=== PATIENT | male | born 1960 | race Caucasian/White ===

== ENCOUNTER 2016-07-30 10:05 | Emergency (ER) | payer MEDICARE, MEDICAID ==
[2016-07-30 10:05] VITALS: BMI 26.4
[2016-07-30 10:20] VITALS: TEMP 97.7; O2SAT 98
--- NOTE | 2016-07-30 10:44 | C.PDOC ---
History Of Present Illness <Sidra Alfaro - Last Filed: 07/30/16 11:03> <Izzy Escamilla - Last Filed: 07/30/16 11:13> 56 year old male with PMHx of HTN, DM, HLD, CVA 4 years ago, CHF and HI presents with complaint of slow healing, painful foot wound. The patient states that one month ago he stepped on a nail with his right foot. He went to a oyster buyer immediately, had the infected area excised, and was given 7 days of oral antibiotics. He completed the course but states that he is worried that the wound is healing slowly. Patient admits to fear of foot amputation. He states that the wound has improved and has not gotten worse. Admits to pain with ambulation and palpation around wound. Denies drainage or bleeding, fevers , numbness, and tingling of extremities. (Izzy Escamilla) <Sidra Alfaro - Last Filed: 07/30/16 11:03> History Per: Patient History/Exam Limitations: no limitations Onset/Duration Of Symptoms: Days (1 month ) Current Symptoms Are (Timing): Better Quality Of Symptoms: Painful Severity: Mild Pain Scale Rating Of: 5 Recent travel outside of the [place]: No <AndiBillIzzy - Last Filed: 07/30/16 11:13> Time Seen by Provider: 07/30/16 10:40 Chief Complaint (Nursing): Abnormal Skin Integrity Past Medical History - Medical History PMH: Asthma, CHF, Diabetes, HTN, Hypercholesterolemia Family History: States: Unknown Family Hx - Social History Hx Tobacco Use: Yes Hx Alcohol Use: No Hx Substance Use: No - Immunization History Hx Tetanus Toxoid Vaccination: Yes (09/25/2012) Hx Influenza Vaccination: Yes Hx Pneumococcal Vaccination: Yes <AndiIzzy - Last Filed: 07/30/16 11:13> Vital Signs: Last Vital Signs Temp 97.7 F 07/30/16 10:19 Pulse 95 H 07/30/16 10:19 Resp 18 07/30/16 10:19 BP 112/75 07/30/16 10:19 Pulse Ox 98 07/30/16 11:01 - [facility] Procedures CLOSURE SKIN & SUBCUTANEOUS NEC (09/25/12) MEASURE OF CARDIAC SAMPL & PRESSURE, L HEART, PERC APPROACH (04/02/16) OTHER LOCAL DESTRUC SKIN (10/11/14) OTHER SKIN & SUBQ I D (02/04/15) PLAIN RADIOGRAPHY OF LEFT HEART USING OTHER CONTRAST (04/02/16) PLAIN RADIOGRAPHY OF MULT COR ART USING OTH CONTRAST (04/02/16) RADICAL EXCIS SKIN LES (10/11/14) TETANUS TOXOID ADMINIST (02/04/15) Review Of Systems Except As Marked, All Systems Reviewed And Found Negative. Constitutional: Negative for: Fever Skin: Positive for: Other (open wound on foot) <Izzy Escamilla - Last Filed: 07/30/16 11:13> Physical Exam - Physical Exam Appears: Well, Non-toxic, No Acute Distress Skin: Normal Color, Warm, Dry, Other (0.5cm x 0.5cm open wound on bottom of right foot, non-draining, non-erythematous, no induration, mild ttp around wound ) Cardiovascular: Rhythm Regular Respiratory: Normal Breath Sounds Extremity: Other (see skin above ) <Izzy Escamilla - Last Filed: 07/30/16 11:13> ED Course And Treatment O2 Sat by Pulse Oximetry: 98 <Izzy Escamilla - Last Filed: 07/30/16 11:13> Supervising Attending Note - Supervising Attending Note Comment: RESIDENT - Attestation: I have personally seen and examined this patient.: Yes I have fully participated in the care of the patient.: Yes I have reviewed all pertinent clinical information, including history, physical exam and plan: Yes <Sidra Alfaro - Last Filed: 07/30/16 11:03> <Izzy Escamilla - Last Filed: 07/30/16 11:13> - Notes: Notes:: CONCERN FOR REINFECTION R FOOT ULCER. "IT'S NOT HEALING FAST I'D LIKE" BUT STATES SITE IS BETTER. COMPLETED ABX PREV PRESCRIBED BY PODIATRY. PS DOES NOT WANT TO SEE PODIATRY "BC HE'S NOT GOING TO DO ANYTHING". REQUESTING IV ABX. NO FEVER, CHILLS, OTHER ASSOC SX. EXAM ABOVE (Sidra Alfaro) Disposition Counseled Patient/Family Regarding: Diagnosis, Need For Followup - Disposition Disposition Time: 11:05 <Sidra Alfaro - Last Filed: 07/30/16 11:03> <Izzy Escamilla - Last Filed: 07/30/16 11:13> - Disposition Referrals: [facility] [Other[facility] [Outside] Instructions: Chronic Wound Care (ED) Forms: Work Excuse - Clinical Impression Clinical Impression: Chronic wound of extremity
[2016-07-30] MEDS ORDERED: Bacitracin 500 Units/gm Oint Foilpak UD TOP ONE (11:09)
[2016-07-30 11:18] VITALS: BP 117/71; PULSE 74; RESP 16
== END 2016-07-30 11:17 | disposition home or self-care (01) ==
LOC: C.ER 10:05
DX: S91.301D Unspecified open wound, right foot, subsequent encounter (principal); X58.XXXD Exposure to other specified factors, subsequent encounter

== ENCOUNTER 2016-10-12 16:29 | Inpatient (IN) | payer MEDICARE, MEDICAID ==
[2016-10-12 16:30] VITALS: BMI 26.4
--- NOTE | 2016-10-12 17:50 | C.PDOC ---
History Of Present Illness 56 year old male presents to the ED with complaints of shortness of breath for 5 days that worsens on exertion. He noted a episode with similar symptoms in March 2016 when he had a WI. Patient denies any chest pain, fever, uri, or leg swelling. Time Seen by Provider: 10/12/16 16:54 Chief Complaint (Nursing): Respiratory Distress History Per: Patient History/Exam Limitations: no limitations Onset/Duration Of Symptoms: Days (5 days ) Current Symptoms Are (Timing): Still Present Exacerbating Factor(s): Exertion Associated Symptoms: denies: Fever, Chills, Sweating, Chest Pain, Dizziness Recent travel outside of the [place]: No Past Medical History Reviewed: Historical Data, Nursing Documentation, Vital Signs Vital Signs: Last Vital Signs Temp 98.1 F 10/12/16 18:20 Pulse 91 H 10/12/16 18:20 Resp 18 10/12/16 18:20 BP 128/86 10/12/16 18:20 Pulse Ox 100 10/12/16 18:32 - Medical History PMH: Asthma, CHF, Diabetes, HTN, Hypercholesterolemia - [facility] Procedures CLOSURE SKIN & SUBCUTANEOUS NEC (09/25/12) MEASURE OF CARDIAC SAMPL & PRESSURE, L HEART, PERC APPROACH (04/02/16) OTHER LOCAL DESTRUC SKIN (10/11/14) OTHER SKIN & SUBQ I D (02/04/15) PLAIN RADIOGRAPHY OF LEFT HEART USING OTHER CONTRAST (04/02/16) PLAIN RADIOGRAPHY OF MULT COR ART USING OTH CONTRAST (04/02/16) RADICAL EXCIS SKIN LES (10/11/14) TETANUS TOXOID ADMINIST (02/04/15) Family History: States: Unknown Family Hx - Social History Hx Tobacco Use: Yes Hx Alcohol Use: No Hx Substance Use: No - Immunization History Hx Tetanus Toxoid Vaccination: Yes (09/25/2012) Hx Influenza Vaccination: Yes Hx Pneumococcal Vaccination: Yes Review Of Systems Constitutional: Negative for: Fever, Chills, Sweats Cardiovascular: Negative for: Chest Pain, Palpitations Respiratory: Positive for: Shortness of Breath. Negative for: Cough Gastrointestinal: Negative for: Nausea, Vomiting, Abdominal Pain, Diarrhea Neurological: Negative for: Weakness, Headache, Dizziness Physical Exam - Physical Exam Appears: Non-toxic, No Acute Distress Skin: Warm, Dry Head: Atraumatic Eye(s): bilateral: PERRL, EOMI Nose: Normal Oral Mucosa: Moist Neck: Normal ROM, Supple Chest: Symmetrical, No Deformity Cardiovascular: Rhythm Regular Respiratory: No Rales, Rhonchi, No Stridor, No Wheezing Gastrointestinal/Abdominal: Soft, No Tenderness, No Distention, No Guarding, No Rebound Extremity: Normal ROM, No Tenderness, No Pedal Edema Neurological/Psych: Oriented x3, Normal Speech, Normal Cognition ED Course And Treatment - Laboratory Results Result Diagrams: 10/12/16 17:57 10/12/16 17:57 ECG: Interpreted By Me (Dr Alfaro), Viewed By Me ECG Rhythm: Sinus Rhythm, Nonspecific Changes Interpretation Of ECG: TWI in II, III, and Avf- un changed from 05/14/16 Rate From EC O2 Sat by Pulse Oximetry: 100 (room air ) - Radiology CXR: Interpreted by Me, Viewed By Me CXR Interpretation: Yes: Other (venous congestion) Progress Note: Case discussed with Demetrice Rico who instructs admission with Dr Isidro Lemus. Dr Felix agreed upon admission. Disposition - Disposition Disposition: HOSPITALIZED Disposition Time: 18:50 Condition: STABLE - Clinical Impression Clinical Impression: Chronic congestive heart failure - Scribe Statement The provider has reviewed the documentation as recorded by the Scribe Flor Huntley All medical record entries made by the Scribe were at my direction and personally dictated by me. I have reviewed the chart and agree that the record accurately reflects my personal performance of the history, physical exam, medical decision making, and the department course for this patient. I have also personally directed, reviewed, and agree with the discharge instructions and disposition.
[2016-10-12 18:07] LABS: BASO # 0.1 K/uL (0.0-0.2); BASO % 1.4 % (0.0-2.0); EOS # 0.6 K/uL (0.0-0.7); EOS % 7.5 % (0.0-4.0); HEMATOCRIT 36.8 % (35.0-51.0); LYMPH # 2.7 K/uL (1.0-4.3); LYMPH % 33.6 % (20.0-40.0); MEAN CELL VOLUME 85.5 fL (80.0-94.0); MEAN CORPUSCULAR HEMOGLOBIN 27.3 pg (27.0-31.0); MEAN PLATELET VOLUME 10.5 fL (7.2-11.7); MONO # 0.7 K/uL (0.0-0.8); MONO % 9.3 % (0.0-10.0); NRBC % 0.1 % (0.0-2.0); RED CELL DISTRIBUTION WIDTH 14.8 % (11.5-14.5)
[2016-10-12 18:19] LABS: POTASSIUM 4.7 mmol/L (3.6-5.2)
[2016-10-12 18:21] LABS: BILIRUBIN,TOTAL 0.5 mg/dL (0.2-1.3)
[2016-10-12 18:22] LABS: ALB/GLOB RATIO 1.5 (1.0-2.1); TOTAL PROTEIN 7.3 g/dL (6.3-8.3)
[2016-10-12 18:33] LABS: TROPONIN I 0.081 ng/mL (0.00-0.120)
[2016-10-12] MEDS ORDERED: Albuterol 0.083% Inhal Sol (2.5 mg/3 mL) UD IH STA (18:50)
[2016-10-12] MEDS ORDERED: Albuterol-Ipratrop 3 mg / 0.5 (3 ml) UD ONE (18:54)
[2016-10-13] MEDS ORDERED: Albuterol-Ipratrop 3 mg / 0.5 (3 ml) UD INH STA (03:50)
--- NOTE | 2016-10-13 08:07 | RAD ---
HISTORY: SOB COMPARISON: 05/14/2016 TECHNIQUE: Chest PA and lateral FINDINGS: LUNGS: Patchy increased markings at the bilateral lung bases which may represent underlying infiltrate and or atelectasis. Diffuse chronic interstitial lung markings which may represent underlying fibrotic changes. Biapical pleural thickening with upper lobe granulomatous changes. Right hilar prominence. PLEURA: As above. CARDIOVASCULAR: Cardiomegaly. OSSEOUS STRUCTURES: No significant abnormalities. VISUALIZED UPPER ABDOMEN: Normal. OTHER FINDINGS: None. IMPRESSION: Patchy increased markings at the bilateral lung bases which may represent underlying infiltrate and or atelectasis. Diffuse chronic interstitial lung markings which may represent underlying fibrotic changes. Biapical pleural thickening with upper lobe granulomatous changes. Right hilar prominence.
--- NOTE | 2016-10-13 10:56 | CP.PCM.PN ---
Subjective - Date & Time of Evaluation Date of Evaluation: 10/13/16 Time of Evaluation: 09:10 - Subjective Subjective: PGY2 Medicine Note - Dr. Felix's service: Patient seen and examined at bedside this AM. Patient reports urinating a lot over night from the Lasix. He says he feels he can breath much better now. Patient has had "water on my lungs" before. Patient has also had previous CVA and MO (March 2016). Patient says he gets more short of breath when he lies flat. Patient denies fever, chills, chest pain, cough. Objective - Vital Signs/Intake and Output Vital Signs (last 24 hours): Temp Pulse Resp BP Pulse Ox 97.5 F L 85 20 125/76 99 10/13/16 07:49 10/13/16 07:49 10/13/16 07:49 10/13/16 09:53 10/13/16 07:49 - Medications Medications: Current Medications Albuterol/Ipratropium (Duoneb 3 Mg/0.5 Mg (3 Ml) Ud) 3 ml INH RQ6 [facility] Aspirin (Aspirin Chewable) 81 mg PO DAILY [facility] Last Admin: 10/13/16 10:00 Dose: 81 mg Carvedilol (Coreg) 6.25 mg PO BID [facility] Last Admin: 10/13/16 09:51 Dose: Not Given Clopidogrel Bisulfate (Plavix) 75 mg PO DAILY [facility] Last Admin: 10/13/16 09:53 Dose: 75 mg Famotidine (Pepcid) 20 mg PO BID [facility] Last Admin: 10/13/16 09:53 Dose: 20 mg Fenofibrate (Tricor) 145 mg PO DAILY [facility] Last Admin: 10/13/16 09:51 Dose: 145 mg Gabapentin (Neurontin) 300 mg PO HS [facility] Insulin Human Regular (Novolin R) 0 unit SC [facility] PRN Reason: Protocol Levetiracetam (Keppra) 1,000 mg PO BID [facility] Last Admin: 10/13/16 09:53 Dose: 1,000 mg Losartan Potassium (Cozaar) 25 mg PO DAILY [facility] Last Admin: 10/13/16 09:51 Dose: Not Given [facility]formin [facility] ([facility]) [facility] Rosuvastatin Calcium (Crestor) 20 mg PO DAILY [facility] Last Admin: 10/13/16 09:53 Dose: 20 mg - Constitutional Appears: Non-toxic, No Acute Distress - Head Exam Head Exam: NORMAL INSPECTION - Eye Exam Eye Exam: EOMI - ENT Exam ENT Exam: Mucous Membranes Moist - Respiratory Exam Respiratory Exam: Rales, Rhonchi (right base), NORMAL BREATHING PATTERN - Cardiovascular Exam Cardiovascular Exam: REGULAR RHYTHM, +S1, +S2. absent: Gallop, Rubs, Murmur - GI/Abdominal Exam GI & Abdominal Exam: Soft, Normal Bowel Sounds. absent: Tenderness - Extremities Exam Extremities Exam: absent: Pedal Edema - Neurological Exam Neurological Exam: Alert, Oriented x3 - Psychiatric Exam Psychiatric exam: Normal Affect, Normal Mood Assessment and Plan - Assessment and Plan (Free Text) Assessment: Acute on chronic systolic and diastolic CHF EF was 20-25% on cardiac cath in March 2016 Another cardiac cath done June 2016 but cannot find the results Cardio consult - Dr. Kumar - f/u recs Lasix 20mg IVP daily Coreg 6.25mg PO BID Losartan 25mg PO daily [facility]IS[facility] 0.0810, .0800, f/u 3rd MERISSA EKG - 92 bpm woith PVCs, rightward axis and prolonged QTc at 460ms COPD History of smoking Duonebs Q6 [facility] CXR - patchy increased markings at the bilateral lung bases which may represent underlying infiltrate and/or atelectasis. Diffuse chronic interstitial lung markings which may represent underlying fibrotic changes. Biapical pleural thickening with upper lobe granulmoatous changes. Right hilar prominence. Patient does not have any symptoms of pneumonia. If patient develops cough, will add ABX HTN Lasix 20mg IVP daily Coreg 6.25mg PO BID Losartan 25mg PO daily Imdur 30mg PO daily DM Metformin 100mg PO BIDBS RISS Accuchecks Hyperlipidemia Crestor 20mg PO daily CVA 4 years ago ASA 81mg PO daily Plavix 75mg PO daily CAD Multivessel blockages Cardio consult - Dr. Kumar - f/u recs ASA 81mg PO daily Plavix 75mg PO daily Prophylaxis Pepcid 20mg PO BID ASA 81mg PO daily plavix 75mg PO daily All management per Dr. Felix
[2016-10-13] MEDS: (Novolin R) Insulin Human Regular 100 units/ml vial SC SCH ×3 (11:55→21:38)
[2016-10-13] MEDS: Albuterol-Ipratrop 3 mg / 0.5 (3 ml) UD INH SCH (13:30)
[2016-10-13] MEDS: Enoxaparin 40 mg Syringe SC SCH (18:14)
--- NOTE | 2016-10-13 19:02 | CP.PCM.CON ---
History of Present Illness - History of Present Illness History of Present Illness: I was asked to see patient by Dr. Felix. Patient is a 56 year old male with a PMH HTN, multivessel CAD, Cardiomyopathy ( last echo EF >35%) who presents with dyspnea. The patient states for the past few days he has noted progressive dyspnea on exertion. He states he was "filling up with fluid". He denies chest pain or palpitaitons. Review of Systems - Constitutional Constitutional: absent: As Per HPI, Anorexia, Chills, Daytime Sleepiness, Excessive Sweating, Fatigue, Fever, Frequent Falls, Headache, Increased Appetite , Lethargy, Malaise, Night Sweats, Snoring, Sleep Apnea, Weight Gain, Weight Loss, Weakness, Other - EENT Eyes: absent: As Per HPI, Blind Spots, Blurred Vision, Change in Vision, Decreased Night Vision, Diplopia, Discharge, Dry Eye, Exophthalmos, Floaters, Irritation, Itchy Eyes, Loss of Peripheral Vision, Pain, Photophobia, Requires Corrective Lenses, Sees Flashes, Spots in Vision, Tunnel Vision, Other Visual Disturbances, Loss of Vision, Other Nose/Mouth/Throat: absent: As Per HPI, Epistaxis, Nasal Congestion, Nasal Discharge, Nasal Obstruction, Nasal Trauma, Nose Pain, Post Nasal Drip, Sinus Pain, Sinus Pressure, Bleeding Gums, Change in Voice, Dental Pain, Dry Mouth, Dysphagia, Halitosis, Hoarsness, Lip Swelling, Mouth Lesions, Mouth Pain, Odynophagia, Sore Throat, Throat Swelling, Tongue Swelling, Facial Pain, Neck Pain, Neck Mass, Other - Cardiovascular Cardiovascular: Dyspnea - Respiratory Respiratory: Dyspnea - Gastrointestinal Gastrointestinal: absent: As Per HPI, Abdominal Pain, Belching, Bloating, Change in Bowel Habits, Change in Stool Character, Coffee Ground Emesis, Constipation, Cramping, Diarrhea, Dyspepsia, Dysphagia, Early Satiety, Excessive Flatus, Fecal Incontinence, Heartburn, Hematemesis, Hematochezia, Loose Stools, Melena, Nausea, Odynophagia, Temesmus, Vomiting, Other - Genitourinary Genitourinary: absent: As Per HPI, Change in Urinary Stream, Difficulty Urinating, Dysuria, Flank Pain, Hematuria, Pyuria, Nocturia, Urinary Incontinence, Urinary Frequency, Urinary Hesitance, Urinary Urgency, Voiding Freq/Small Amts, Freq UTI, Hx Renal/Bladder Calculi, Hx /Renal Surgery, Bladder Distension, Other - Musculoskeletal Musculoskeletal: absent: As Per HPI, Abnormal Gait, Arthralgias, Atrophy, Back Pain, Deformity, Joint Swelling, Limited Range of Motion, Loss of Height, Muscle Cramps, Muscle Weakness, Myalgias, Neck Pain, Numbness, Radiating Pain into Limb, Stiffness, Tingling, Other - Integumentary Integumentary: absent: As Per HPI, Acne, Alopecia, Bleeding Lesions, Change in Hair, Change in Nails, Change in Pigmentation, Changing Lesions, Dry Skin, Erythema, Furuncle, Hirsutism, Lesions, New Lesions, Non-Healing Lesions, Photosensitivity, Pruritus, Rash, Skin Pain, Skin Ulcer, Sores, Striae, Swelling , Unusual Bruising, Wounds, Jaundice, Other - Neurological Neurological: absent: As Per HPI, Abnormal Gait, Abnormal Hearing, Abnormal Movements, Abnormal Speech, Behavioral Changes, Burning Sensations, Confusion, Convulsions, Disequilibrium, Dizziness, Numbness, Focal Weakness, Frequent Falls , Headaches, Lack of Coordination, Loss of Vision, Memory Loss, Paresthesias, Radicular Pain, Restless Legs, Sensory Deficit, Syncope, Tingling, Tremor, Vertigo, Weakness, Other Visual Disturbances, Other - Psychiatric Psychiatric: absent: As Per HPI, Abnormal Sleep Pattern, Anhedonia, Anxiety, Auditory Hallucinations, Behavioral Changes, Change in Appetite, Change in Libido, Confusion, Depression, Difficulty Concentrating, Hallucinations, Homicidal Ideation, Hopelessness, Irritability, Memory Loss, Mood Swings, Panic Attacks, Paranoia, Suicidal Ideation, Visual Hallucinations, Tactile Hallucinations, Other - Endocrine Endocrine: absent: As Per HPI, Change in Body Appearance, Change in Libido, Cold Intolorance, Deepening of Voice, Excessive Sweating, Fatigue, Flushing, Heat Intolorance, Increase in Ring/Shoe/Hat Size, Palpitations, Polydipsia, Polyphagia, Polyuria, Other - Hematologic/Lymphatic Hematologic: absent: As Per HPI, Easy Bleeding, Easy Bruising, Lymphadenopathy, Other Past Patient History - Infectious Disease Hx of Infectious Diseases: None - Past Medical History & Family History Past Medical History?: Yes - Past Social History Smoking Status: Former Smoker - CARDIAC Hx Congestive Heart Failure: Yes Hx Hypercholesterolemia: Yes Hx Hypertension: Yes - PULMONARY Hx Asthma: Yes - NEUROLOGICAL Hx Neurological Disorder: Yes HX Cerebrovascular Accident: Yes (5 yrs ago) Other/Comment: STROKE - 3-4 YRS AGO - HEENT Hx HEENT Problems: Yes (SEE COMMENT) Other/Comment: 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 - ENDOCRINE/METABOLIC Hx Endocrine Disorders: Yes Hx Diabetes Mellitus Type 2: Yes - MUSCULOSKELETAL/RHEUMATOLOGICAL Hx Falls: No - GASTROINTESTINAL Hx Gastrointestinal Disorders: Yes Hx Ulcer: Yes - PSYCHIATRIC Hx Substance Use: No - SURGICAL HISTORY Hx Surgeries: Yes Hx Orthopedic Surgery: Yes (RIGHT HAND ) - ANESTHESIA Hx Anesthesia: Yes Hx Anesthesia Reactions: No Hx Malignant Hyperthermia: No Has any member of the family had a problem w/ anesthesia?: No Meds Allergies/Adverse Reactions: Allergies Allergy/AdvReac Type Severity Reaction Status Date / Time No Known Allergies Allergy Verified 10/12/16 16:59 - Medications Medications: Current Medications Albuterol/Ipratropium (Duoneb 3 Mg/0.5 Mg (3 Ml) Ud) 3 ml INH RQ6 [facility] Last Admin: 10/13/16 13:30 Dose: 3 ml Aspirin (Aspirin Chewable) 81 mg PO DAILY [facility] Last Admin: 10/13/16 10:00 Dose: 81 mg Carvedilol (Coreg) 6.25 mg PO BID [facility] Last Admin: 10/13/16 17:45 Dose: 6.25 mg Clopidogrel Bisulfate (Plavix) 75 mg PO DAILY [facility] Last Admin: 10/13/16 09:53 Dose: 75 mg Enoxaparin Sodium (Lovenox) 40 mg SC DAILY [facility] Last Admin: 10/13/16 18:14 Dose: 40 mg Famotidine (Pepcid) 20 mg PO BID [facility] Last Admin: 10/13/16 17:45 Dose: 20 mg Fenofibrate (Tricor) 145 mg PO DAILY [facility] Last Admin: 10/13/16 09:51 Dose: 145 mg Furosemide (Lasix) 20 mg IVP DAILY [facility] Gabapentin (Neurontin) 300 mg PO HS [facility] Insulin Human Regular (Novolin R) 0 unit SC [facility] PRN Reason: Protocol Last Admin: 10/13/16 16:42 Dose: Not Given Isosorbide Mononitrate (Imdur) 30 mg PO DAILY [facility] Last Admin: 10/13/16 11:20 Dose: 30 mg Levetiracetam (Keppra) 1,000 mg PO BID [facility] Last Admin: 10/13/16 17:44 Dose: 1,000 mg Losartan Potassium (Cozaar) 25 mg PO DAILY [facility] Last Admin: 10/13/16 09:51 Dose: Not Given Metformin HCl (Glucophage) 1,000 mg PO BIDBS [facility] Last Admin: 10/13/16 17:44 Dose: 1,000 mg Rosuvastatin Calcium (Crestor) 20 mg PO DAILY [facility] Last Admin: 10/13/16 09:53 Dose: 20 mg Physical Exam - Constitutional Appears: Non-toxic - Head Exam Head Exam: NORMAL INSPECTION - Eye Exam Eye Exam: Normal appearance - ENT Exam ENT Exam: Mucous Membranes Moist - Neck Exam Neck exam: Positive for: Full Rom - Respiratory Exam Respiratory Exam: Decreased Breath Sounds, Rales - Cardiovascular Exam Cardiovascular Exam: REGULAR RHYTHM - GI/Abdominal Exam GI & Abdominal Exam: Normal Bowel Sounds - Rectal Exam Rectal Exam: Deferred - Extremities Exam Extremities exam: Negative for: pedal edema - Back Exam Back exam: NORMAL INSPECTION - Neurological Exam Neurological exam: Alert, Oriented x3 - Psychiatric Exam Psychiatric exam: Normal Affect - Skin Skin Exam: Normal Color Results - Vital Signs Recent Vital Signs: Last Vital Signs Temp 97.8 F 10/13/16 15:00 Pulse 84 10/13/16 17:46 Resp 20 10/13/16 17:46 BP 127/73 10/13/16 17:46 Pulse Ox 99 10/13/16 15:00 - Labs Result Diagrams: 10/12/16 17:57 10/12/16 17:57 Labs: Laboratory Results - last 24 hr 10/13/16 10/13/16 10/13/16 06:15 08:11 11:46 POC Glucose (mg/dL) 118 H 123 H Total Creatine Kinase 52 L CK-MB (Mass) 0.81 Troponin I, Quant 0.0800 10/13/16 10/13/16 15:44 16:35 POC Glucose (mg/dL) 118 H Total Creatine Kinase 45 L CK-MB (Mass) 0.71 Troponin I, Quant 0.0680 - EKG Data EKG Interpreted by: Myself Assessment & Plan (1) Systolic dysfunction with acute on chronic heart failure Assessment and Plan: will need improved duresis. I discussed medical therapy and lifestyle modification Status: Acute (2) HTN (hypertension) Assessment and Plan: discussed continued blood pressure control and importance for prevention od CHF. Status: Acute (3) CAD (coronary artery disease) Assessment and Plan: will restart Imdur. no current angina. Status: Acute (4) Hypercholesterolemia Assessment and Plan: statin therapy Status: Acute
--- NOTE | 2016-10-14 01:55 | CARD ---
APPROVED REPORT EKG Measurement Heart [id number] MD [id number] <Conclusion> Sinus rhythm with occasional premature ventricular complexes Rightward axis ST & T wave abnormality, consider inferior ischemia Prolonged QT Abnormal ECG
[2016-10-14 07:13] LABS: BASO # 0.2 K/uL (0.0-0.2); BASO % 2.3 % (0.0-2.0); EOS # 0.7 K/uL (0.0-0.7); EOS % 7.4 % (0.0-4.0); HEMATOCRIT 33.3 % (35.0-51.0); LYMPH # 1.9 K/uL (1.0-4.3); LYMPH % 21.1 % (20.0-40.0); MEAN CORPUSCULAR HEMOGLOBIN 28.1 pg (27.0-31.0); MEAN CORPUSCULAR HGB CONC 33.5 g/dL (33.0-37.0); MEAN PLATELET VOLUME 10.1 fL (7.2-11.7); MONO # 0.7 K/uL (0.0-0.8); RED CELL DISTRIBUTION WIDTH 14.7 % (11.5-14.5); WHITE BLOOD COUNT 8.9 K/uL (4.8-10.8)
[2016-10-14 07:18] LABS: CHLORIDE 101 mmol/L (98-107); POTASSIUM 3.8 mmol/L (3.6-5.2); SODIUM 139 mmol/L (132-148)
[2016-10-14 07:20] LABS: AST/SGOT 30 U/L (17-59); BILIRUBIN,TOTAL 0.6 mg/dL (0.2-1.3); CARBON DIOXIDE 25 mmol/L (22-30); GFR AFRICAN-AMERICAN > 60
[2016-10-14 07:21] LABS: ALB/GLOB RATIO 1.3 (1.0-2.1); ALKALINE PHOSPHATASE 38 U/L (38-126); ALT/SGPT 20 U/L (21-72); BLOOD UREA NITROGEN 15 mg/dL (9-20); CALCIUM 8.9 mg/dl (8.6-10.4); GLUCOSE,RANDOM 107 mg/dL (75-110); TOTAL PROTEIN 6.8 g/dL (6.3-8.3)
[2016-10-14] MEDS: (Novolin R) Insulin Human Regular 100 units/ml vial SC SCH (07:52)
--- NOTE | 2016-10-14 08:01 | HP ---
This is a 56-year-old male admitted to the hospital with complaint of shortness of breath, weakness, cough. The patient came to the hospital and advised admission history of coronary artery disea se, diabetes and hypertension. PHYSICAL EXAMINATION: GENERAL: Awake, alert, oriented. VITAL SIGNS: Temperature 98, pulse 90. HEENT: Within normal limits. NECK: Supple. CHEST: Symmetrical. HEART: Regular. ABDOMEN: Soft. EXTREMITIES: No edema. ASSESSMENT AND PLAN: The patient suffers from congestive heart failure. Bed rest, supportive care, diuresis. Allan Beltre MD cc: [id number] TT: 10/13/2016 10:55:56 jose
[2016-10-14] MEDS: Albuterol-Ipratrop 3 mg / 0.5 (3 ml) UD INH SCH (08:09)
[2016-10-14 08:17] VITALS: PULSE 89; RESP 20; TEMP 97.5; O2SAT 100
--- NOTE | 2016-10-14 08:59 | CP.PCM.PN ---
Subjective - Date & Time of Evaluation Date of Evaluation: 10/14/16 Time of Evaluation: 10:00 - Subjective Subjective: PGY2 on medicine Dr. Felix service: Pt seen and examined at bedside this morning. No acute events overnight. Pt to be discharged today with home meds with addition of Lasix 40mg PO daily and Imdur 30mg PO daily. Pt will also be given Nicotrol inhaler. Objective - Vital Signs/Intake and Output Vital Signs (last 24 hours): Temp Pulse Resp BP Pulse Ox 97.5 F L 89 20 129/83 100 10/14/16 07:00 10/14/16 07:00 10/14/16 07:00 10/14/16 07:00 10/14/16 07:00 Intake and Output: 10/14/16 10/14/16 06:59 18:59 Intake Total 480 Balance 480 - Medications Medications: Current Medications Albuterol/Ipratropium (Duoneb 3 Mg/0.5 Mg (3 Ml) Ud) 3 ml INH RQ6 [facility] Last Admin: 10/14/16 08:09 Dose: 3 ml Aspirin (Aspirin Chewable) 81 mg PO DAILY [facility] Last Admin: 10/13/16 10:00 Dose: 81 mg Carvedilol (Coreg) 6.25 mg PO BID [facility] Last Admin: 10/13/16 17:45 Dose: 6.25 mg Clopidogrel Bisulfate (Plavix) 75 mg PO DAILY [facility] Last Admin: 10/13/16 09:53 Dose: 75 mg Enoxaparin Sodium (Lovenox) 40 mg SC DAILY [facility] Last Admin: 10/13/16 18:14 Dose: 40 mg Famotidine (Pepcid) 20 mg PO BID [facility] Last Admin: 10/13/16 17:45 Dose: 20 mg Fenofibrate (Tricor) 145 mg PO DAILY [facility] Last Admin: 10/13/16 09:51 Dose: 145 mg Furosemide (Lasix) 20 mg IVP DAILY [facility] Gabapentin (Neurontin) 300 mg PO HS [facility] Last Admin: 10/13/16 21:37 Dose: 300 mg Insulin Human Regular (Novolin R) 0 unit SC [facility] PRN Reason: Protocol Last Admin: 10/14/16 07:52 Dose: Not Given Isosorbide Mononitrate (Imdur) 30 mg PO DAILY [facility] Last Admin: 10/13/16 11:20 Dose: 30 mg Levetiracetam (Keppra) 1,000 mg PO BID [facility] Last Admin: 10/13/16 17:44 Dose: 1,000 mg Losartan Potassium (Cozaar) 25 mg PO DAILY [facility] Last Admin: 10/13/16 09:51 Dose: Not Given Metformin HCl (Glucophage) 1,000 mg PO BIDBS [facility] Last Admin: 10/14/16 08:19 Dose: 1,000 mg Rosuvastatin Calcium (Crestor) 20 mg PO DAILY [facility] Last Admin: 10/13/16 09:53 Dose: 20 mg - Labs Labs: 10/14/16 06:56 10/14/16 06:56 - Constitutional Appears: Non-toxic, No Acute Distress - Head Exam Head Exam: NORMOCEPHALIC - Eye Exam Eye Exam: Normal appearance - Respiratory Exam Respiratory Exam: Clear to Ausculation Bilateral, NORMAL BREATHING PATTERN - Cardiovascular Exam Cardiovascular Exam: REGULAR RHYTHM, +S1, +S2. absent: Gallop, Rubs - GI/Abdominal Exam GI & Abdominal Exam: Soft, Normal Bowel Sounds - Neurological Exam Neurological Exam: Alert, Awake, Normal Gait, Oriented x3 Assessment and Plan - Assessment and Plan (Free Text) Assessment: Acute on chronic systolic and diastolic CHF EF was 20-25% on cardiac cath in March 2016 Another cardiac cath done June 2016 but cannot find the results Cardio consult - Dr. Kumar - [facility] ECHO EF >35% per Dr. Kumar Coreg 6.25mg PO BID Losartan 25mg PO daily Lasix 40mg PO daily COPD History of smoking Duonebs Q6 [facility] CXR - patchy increased markings at the bilateral lung bases which may represent underlying infiltrate and/or atelectasis. Diffuse chronic interstitial lung markings which may represent underlying fibrotic changes. Biapical pleural thickening with upper lobe granulmoatous changes. Right hilar prominence. Patient does not have any symptoms of pneumonia. HTN Lasix 20mg IVP daily Coreg 6.25mg PO BID Losartan 25mg PO daily Imdur 30mg PO daily added DM Metformin 1000mg PO BIDBS Hyperlipidemia Crestor 20mg PO daily CVA 4 years ago ASA 81mg PO daily Plavix 75mg PO daily CAD Multivessel blockages Cardio consult - Dr. Grant ASA 81mg PO daily Plavix 75mg PO daily Discharged per Dr. Felix
[2016-10-14] MEDS ORDERED: Enoxaparin 40 mg Syringe SC SCH (10:00)
[2016-10-14] MEDS ORDERED: Pneumococcal 23-Valent Vaccine IM ONE (10:00)
[2016-10-14] MEDS: Enoxaparin 40 mg Syringe SC SCH (10:07)
[2016-10-14 10:11] VITALS: BP 125/75
--- NOTE | 2016-10-14 17:28 | PCM.HF ---
Heart Failure Core Measure - Heart Failure Ejection Fraction: Less Than 40 % Left Ventricular Function to be assessed after discharge: Yes NELA Inhibitor Prescribed: Yes Beta-Suzy Prescribed: Carvedilol Angiotensin II Receptor Suzy Prescribed: No Contraindication/Reason for not providing: ON NELA AnticoagulationTherapy for Atrial Fibrillation/Atrialflutter: No Contraindication/Reason for not providing: NO AFIB Aldosterone Antagonist Prescribed: No Contraindication/Reason for not providing: LOW BP Hydralazine Nitrate Prescribed: No Contraindication/Reason for not providing: LOW BP Implantable Cardioverter Defibrillator Therapy: No Contraindication/Reason for not providing: ON LIFE VEST Cardiac Resynchronization Therapy Prescribed: No Contraindication/Reason for not providing: ON LIFE VEST - Follow up Will be discharged to: Home Follow Up Date (must be within 7 days from discharge): 10/16/16 Follow Up Time: 09:00
== END 2016-10-14 11:58 | disposition home or self-care (01) | DRG 293 ==
LOC: C.ER 16:29 → C.9E 18:41 → OBSVTOIN 20:04 → C.6T 21:52
PROVIDERS: ADMIT Internal Medicine Pulmonary Disease; ATTEND Internal Medicine Pulmonary Disease
DX: I11.0 Hypertensive heart disease with heart failure (principal); I42.9 Cardiomyopathy, unspecified; E11.9 Type 2 diabetes mellitus without complications; I50.43 Acute on chronic combined systolic (congestive) and diastolic (congestive) heart failure; I25.10 Atherosclerotic heart disease of native coronary artery without angina pectoris; E78.00 Pure hypercholesterolemia, unspecified; E78.5 Hyperlipidemia, unspecified; J44.9 Chronic obstructive pulmonary disease, unspecified; Z87.891 Personal history of nicotine dependence; Z86.73 Personal history of transient ischemic attack (TIA), and cerebral infarction without residual deficits; Z79.84 Long term (current) use of oral hypoglycemic drugs

== ENCOUNTER 2017-01-24 19:56 | Observation (INO) | payer MEDICARE, MEDICAID ==
[2017-01-24 19:57] VITALS: BMI 26.4
--- NOTE | 2017-01-24 20:08 | C.PDOC ---
History Of Present Illness Patient presents to the ER with a complaint of feeling SOB. Patient reports he had a pacemaker placed a month ago and since then he has felt SOB. Patient is currently speaking in complete sentences; denies chest pain, nausea, or vomiting. Time Seen by Provider: 01/24/17 20:08 Chief Complaint (Nursing): Shortness Of Breath History Per: Patient History/Exam Limitations: no limitations Onset/Duration Of Symptoms: Days Current Symptoms Are (Timing): Still Present Initiating Event: Other (Since pacemaker placed) Exacerbating Factor(s): Exertion Current Respiratory Medications: See Home Med List Severity: Moderate Pain Scale Rating Of: 4 Associated Symptoms: Anxiety. denies: Fever, Chills, Chest Pain Reports Recently: Seen In ED, Treated By A Physician, Hospitalized Recent travel outside of the [place]: No Additional History Per: Family Past Medical History Reviewed: Historical Data, Nursing Documentation, Vital Signs Vital Signs: Last Vital Signs Temp 98 F 01/24/17 20:41 Pulse 96 H 01/24/17 21:11 Resp 15 01/24/17 21:11 BP 127/84 01/24/17 21:11 Pulse Ox 99 01/24/17 21:11 - Medical History PMH: Asthma, CHF, Diabetes, HTN, Hypercholesterolemia Surgical History: Pacemaker - [facility] Procedures CLOSURE SKIN & SUBCUTANEOUS NEC (09/25/12) MEASURE OF CARDIAC SAMPL & PRESSURE, L HEART, PERC APPROACH (04/02/16) OTHER LOCAL DESTRUC SKIN (10/11/14) OTHER SKIN & SUBQ I D (02/04/15) PLAIN RADIOGRAPHY OF LEFT HEART USING OTHER CONTRAST (04/02/16) PLAIN RADIOGRAPHY OF MULT COR ART USING OTH CONTRAST (04/02/16) RADICAL EXCIS SKIN LES (10/11/14) TETANUS TOXOID ADMINIST (02/04/15) Family History: States: No Known Family Hx - Social History Hx Tobacco Use: Yes Hx Alcohol Use: No Hx Substance Use: No - Immunization History Hx Tetanus Toxoid Vaccination: Yes (09/25/2012) Hx Influenza Vaccination: Yes Hx Pneumococcal Vaccination: Yes Review Of Systems Constitutional: Negative for: Fever, Chills Cardiovascular: Negative for: Chest Pain Respiratory: Positive for: Shortness of Breath Gastrointestinal: Negative for: Nausea, Vomiting Genitourinary: Negative for: Dysuria Musculoskeletal: Negative for: Back Pain Skin: Negative for: Rash Neurological: Negative for: Weakness Psych: Positive for: Anxiety Physical Exam - Physical Exam Appears: Non-toxic, Other (Very anxious) Skin: Warm, Dry Head: Normacephalic Eye(s): bilateral: Normal Inspection Oral Mucosa: Moist Neck: Supple Chest: Symmetrical, Other (Left pace maker) Cardiovascular: Rhythm Regular Respiratory: No Rales, No Rhonchi, No Wheezing Gastrointestinal/Abdominal: Soft, No Tenderness Back: No CVA Tenderness Extremity: No Tenderness, Pedal Edema (trace) Extremity: Bilateral: Atraumatic, Normal Color And Temperature Pulses: Left Dorsalis Pedis: Normal, Right Dorsalis Pedis: Normal Neurological/Psych: Oriented x3, Normal Speech, Normal Cognition Gait: Steady ED Course And Treatment - Laboratory Results Result Diagrams: 01/24/17 20:31 01/24/17 20:31 ECG: Interpreted By Me, Viewed By Me ECG Rhythm: Sinus Rhythm (96), Nonspecific Changes (atrial sensed ventricular paced) O2 Sat by Pulse Oximetry: 100 (Room air) Pulse Ox Interpretation: Normal - Radiology CXR: Interpreted by Me, Viewed By Me CXR Interpretation: Yes: Cardiomegaly, Other (mild chf, pacer on left). No: Infiltrates, Fracture Progress Note: Blood work, EKG, CXR, and urinalysis ordered. Disposition Discussed With Dr.: Winter Hurst Comment: accepted the pt on his service and took over the care at 9:40 PM Doctor Will See Patient In The: Hospital Counseled Patient/Family Regarding: Studies Performed, Diagnosis - Disposition Disposition: HOSPITALIZED Disposition Time: 20:08 Condition: FAIR Forms: [facility] (Armenian) - POA Present On Arrival: Poor Glycemic Control - Clinical Impression Clinical Impression: Dyspnea, CHF (congestive heart failure) - Scribe Statement The provider has reviewed the documentation as recorded by the Scribe Jass Blue All medical record entries made by the Scribe were at my direction and personally dictated by me. I have reviewed the chart and agree that the record accurately reflects my personal performance of the history, physical exam, medical decision making, and the department course for this patient. I have also personally directed, reviewed, and agree with the discharge instructions and disposition. Decision To Admit - Pt Status Changed To: Hospital Disposition Of: Observation - . Bed Request Type: Telemetry Admitting Physician: Winter Hurst Patient Diagnosis: Dyspnea, CHF (congestive heart failure)
[2017-01-24 20:33] LABS: ABG ALLEN TEST PO; DRAW SITE LR
[2017-01-24 20:36] LABS: HEMATOCRIT 35.2 % (35.0-51.0)
[2017-01-24 20:40] LABS: MEAN CELL VOLUME 74.9 fL (80.0-94.0); MEAN CORPUSCULAR HEMOGLOBIN 23.2 pg (27.0-31.0); MEAN PLATELET VOLUME 8.8 fL (7.2-11.7); WHITE BLOOD COUNT 7.6 K/uL (4.8-10.8)
[2017-01-24 20:47] LABS: ALB/GLOB RATIO 1.4 (1.0-2.1); ALKALINE PHOSPHATASE 53 U/L (38-126); ALT/SGPT 29 U/L (21-72); AST/SGOT 28 U/L (17-59); BILIRUBIN,TOTAL 0.5 mg/dL (0.2-1.3); BLOOD UREA NITROGEN 15 mg/dL (9-20); CALCIUM 9.2 mg/dl (8.6-10.4); CARBON DIOXIDE 19 mmol/L (22-30); CHLORIDE 94 mmol/L (98-107); GFR AFRICAN-AMERICAN > 60; GLUCOSE,RANDOM 129 mg/dL (75-110); SODIUM 133 mmol/L (132-148); TOTAL PROTEIN 6.8 g/dL (6.3-8.3)
[2017-01-24 20:52] LABS: INR 1.2
[2017-01-24 21:17] LABS: BASO % 0.8 % (0.0-2.0); EOS % 1.9 % (0.0-4.0)
[2017-01-24 21:18] LABS: BASO # 0.1 K/uL (0.0-0.2); EOS # 0.1 K/uL (0.0-0.7); LYMPH # 2.2 K/uL (1.0-4.3); MONO # 0.7 K/uL (0.0-0.8); NRBC % 0.1 % (0.0-2.0)
[2017-01-24 22:03] LABS: RBC URINE < 1 /hpf (0-3); URINE BILIRUBIN NEGATIVE (NEGATIVE); URINE BLOOD NEGATIVE (NEGATIVE); URINE COLOR Straw (YELLOW); URINE GLUCOSE (UA) NORMAL (Normal); URINE KETONE NEGATIVE (NEGATIVE); URINE LEUKOCYTE ESTERASE NEG Leu/uL (Negative); URINE PROTEIN 2+ mg/dL (NEGATIVE); URINE UROBILINOGEN NORMAL mg/dL (0.2-1.0)
[2017-01-25] MEDS: (Novolog) Insulin Aspart, Recombinant 100 u/ml 10 ml vial SC SCH ×4 (07:49→21:19)
--- NOTE | 2017-01-25 10:20 | RAD ---
PROCEDURE: CHEST RADIOGRAPH, 1 VIEW HISTORY: Shortness of breath COMPARISON: 10/12/2016 FINDINGS: LUNGS: Moderate to severe venous congestion with prominent bibasilar airspace opacities and small right pleural effusion. PLEURA: As above. CARDIOVASCULAR: Cardiomegaly. Left-sided pacemaker. OSSEOUS STRUCTURES: No significant abnormalities. VISUALIZED UPPER ABDOMEN: Normal. OTHER FINDINGS: None. IMPRESSION: Moderate to severe venous congestion with prominent bibasilar airspace opacities and small right pleural effusion.
--- NOTE | 2017-01-25 12:26 | CARD ---
APPROVED REPORT EKG Measurement Heart [id number] <Conclusion> Atrial-sensed ventricular-paced rhythm Abnormal ECG
[2017-01-26 00:41] VITALS: RESP 20
--- NOTE | 2017-01-26 01:34 | HP ---
HISTORY OF PRESENT ILLNESS: The patient is seen today on 01/25/2017. He is a 56-year-old male with history of multiple medical problems including dilated cardiomyopathy, status post ICD placement. The patient presented to emergency room with symptoms of progressive shortness of breath over one day duration. The patient on that day, he drank excessive amount of fluids including milk and coconut water. The patient was examined in the emergency room where he was found to be in pulmonary edema. The patient was given 60 mg of Lasix as per hilda. The patient felt much better and he was admitted to telemetry floor for further management. The patient had similar episodes before as he was not compliant to diet and medications. The patient denies having any chest pain. The patient was feeling better since admission. OTHER REVIEW OF SYSTEMS: Negative. ALLERGIES: NO KNOWN ALLERGIES. HOME MEDICATIONS: Keppra 500 mg twice a day, metformin 500 mg twice a day, Crestor 20 mg daily, Losartan 25 mg daily, Imdur 30 mg daily, gabapentin 300 mg at bedtime, Lasix 40 mg daily, Fenofibrate 134 mg daily, Pepcid 20 mg twice a day, Coreg 6.25 mg twice a day, Plavix 75 mg daily and aspirin 81 mg daily. PAST MEDICAL HISTORY: Dilated cardiomyopathy status post ICD placement, type 2 diabetes mellitus, hypertension and hypercholesterolemia. FAMILY HISTORY: Noncontributory. SOCIAL HISTORY: Ex-smoker and Ex-ETOH abuse. PHYSICAL EXAMINATION: GENERAL: The patient is in bed, comfortable, not in any cardiopulmonary distress at the time of his examination. VITAL SIGNS: With blood pressure of 137/94, temperature of 97.2, respiratory rate of 20, and pulse of 100. HEENT: Pupils are equal and reactive to light. Normal-appearing mucosa of the conjunctivae, oropharynx, and nasal membrane mucosa. NECK: Supple. No JVD. No carotid bruit. No lymph node. No thyromegaly. CHEST AND LUNGS: Bilateral symmetrical expansion. Good air exchange. No rales and no rhonchi. CARDIOVASCULAR SYSTEM: PMI not localized. S1 and S2. No additional sounds. ABDOMEN: Normoactive bowel sounds. No tenderness. No organomegaly. No masses. EXTREMITIES: No cyanosis. No clubbing. No edema. CENTRAL NERVOUS SYSTEM: Alert, awake, and oriented x3. No neurological deficit could be appreciated. ASSESSMENT: 1. Pulmonary edema secondary to noncompliant to fluid restriction. 2. Dilated cardiomyopathy with ejection fraction 25% status post implantable cardioverter defibrillator placement. 3. Type 2 diabetes mellitus. 4. Hypertension. PLAN: Continue diuretics and current medications. The patient was instructed to restrict the IV fluid. If the patient was stable in the morning, he will be discharged to home to follow as an outpatient. [facility] MD Aris
[2017-01-26] MEDS: (Novolog) Insulin Aspart, Recombinant 100 u/ml 10 ml vial SC SCH ×2 (07:30→12:56)
[2017-01-26 08:43] VITALS: PULSE 92; TEMP 97.2; O2SAT 98
[2017-01-26 10:26] VITALS: BP 120/71
--- NOTE | 2017-01-26 10:57 | CP.PCM.PN ---
Subjective - Date & Time of Evaluation Date of Evaluation: 01/26/17 Time of Evaluation: 10:46 - Subjective Subjective: DISCUSSED D/C WITH DR. ANDREWS. PT CLEARED TO GO HOME TODAY WITH SAME HOME MEDS. PT CURRENTLY DENIES ANY COMPLAINTS; NO SOB OR CP PER HIM. ON EXAM HR 98; BS CTA B/L, NO PEDAL EDEMA. PT EDUCATED AT LENGTH REGARDING ADHERENCE TO CHF FRIENDLY DIET AND FLUID RESTRICTIONS. ALSO EDUCATED ON MEDICATION COMPLIANCE AND IMPORTANCE OF TAKING MEDS EXACTLY PRESCRIBED. PT VERBALIZES UNDERSTANDING OF ALL EDUCATION. REFILLS FOR PT MEDS SENT TO PHARMACY; RX FOR AMBIEN PER DR. ANDREWS. NO FURTHER ORDERS. Objective - Vital Signs/Intake and Output Vital Signs (last 24 hours): Temp Pulse Resp BP Pulse Ox 97.2 F L 92 H 20 120/71 98 01/26/17 08:41 01/26/17 08:41 01/26/17 08:41 01/26/17 10:25 01/26/17 08:41 Intake and Output: 01/26/17 01/26/17 06:59 18:59 Intake Total 240 Balance 240 - Medications Medications: Current Medications Aspirin (Aspirin Chewable) 81 mg PO DAILY [facility] Last Admin: 01/26/17 10:24 Dose: 81 mg Carvedilol (Coreg) 6.25 mg PO BID [facility] Last Admin: 01/26/17 10:24 Dose: 6.25 mg Clopidogrel Bisulfate (Plavix) 75 mg PO DAILY [facility] Last Admin: 01/26/17 10:24 Dose: 75 mg Fenofibrate (Tricor) 145 mg PO DAILY [facility] Last Admin: 01/26/17 10:27 Dose: 145 mg Furosemide (Lasix) 40 mg IVP DAILY [facility] Last Admin: 01/26/17 10:25 Dose: 40 mg Insulin Aspart (Novolog) 0 unit SC [facility] PRN Reason: Protocol Last Admin: 01/26/17 07:30 Dose: Not Given Levetiracetam (Keppra) 500 mg PO BID [facility] Last Admin: 01/26/17 10:25 Dose: 500 mg Losartan Potassium (Cozaar) 25 mg PO HS [facility] Last Admin: 01/25/17 22:26 Dose: 25 mg Metformin HCl (Glucophage) 500 mg PO BIDCC [facility] Last Admin: 01/26/17 10:23 Dose: 500 mg Ondansetron HCl (Zofran Inj) 4 mg IVP [facility] PRN Reason: Nausea/Vomiting Last Admin: 01/25/17 14:22 Dose: 4 mg Rosuvastatin Calcium (Crestor) 20 mg PO HS [facility] Last Admin: 01/25/17 22:25 Dose: 20 mg Zolpidem Tartrate (Ambien) 5 mg PO HS [facility] Last Admin: 01/25/17 22:26 Dose: 5 mg - Labs Labs: PT 13.6 SECONDS (9.7-12.2) H 01/24/17 20:31 INR 1.2 01/24/17 20:31 APTT 35 SECONDS (21-34) H 01/24/17 20:31
--- NOTE | 2017-01-26 11:34 | PCM.HF ---
Heart Failure Core Measure - Heart Failure Ejection Fraction: 40 % or Greater NELA Inhibitor Prescribed: No Contraindication/Reason for not providing: on arb Beta-Suzy Prescribed: Carvedilol Angiotensin II Receptor Suzy Prescribed: Yes AnticoagulationTherapy for Atrial Fibrillation/Atrialflutter: No Contraindication/Reason for not providing: no afib Aldosterone Antagonist Prescribed: No Contraindication/Reason for not providing: ef >40; has icd Hydralazine Nitrate Prescribed: No Contraindication/Reason for not providing: ef >40; has icd Implantable Cardioverter Defibrillator Therapy: Yes Contraindication/Reason for not providing: ef >40; has icd Cardiac Resynchronization Therapy Prescribed: No Contraindication/Reason for not providing: ef >40; has icd - Follow up Will be discharged to: Home Follow Up Date (must be within 7 days from discharge): 02/01/17 Follow Up Time: 09:00
[2017-01-26] MEDS ORDERED: ceFAZolin IV 2 gm in Dextrose 1 GM/50 ML BAG IVPB ONE (14:03)
[2017-01-26] MEDS ORDERED: Lidocaine 1% Inj (20ml) ONE (14:03)
--- NOTE | 2017-01-27 04:59 | DS ---
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 COURSE OF HOSPITALIZATION: The patient was admitted to telemetry floor and he was started on IV diuretics as well as all his home medications were resumed and continued. The patient's symptoms remarkably improved. The patient was not restricting excessive fluid intake and he was discharged home on fluid restriction and to continue his current medications. FINAL DIAGNOSES: 1. Exacerbation of congestive heart failure both acute on top of chronic both systolic and diastolic. 2. Status post implantable cardioverter-defibrillator placement. 3. Type 2 diabetes mellitus. 4. Hypertension. 5. History of alcohol abuse. [facility] MD Aris
== END 2017-01-26 13:58 | disposition home or self-care (01) ==
LOC: C.ER 19:56 → C.9E 21:44 → C.9I 22:51 → C.6T 01-25 12:39
PROVIDERS: ADMIT Internal Medicine; ATTEND Internal Medicine
DX: I50.40 Unspecified combined systolic (congestive) and diastolic (congestive) heart failure (principal); J45.909 Unspecified asthma, uncomplicated; I10 Essential (primary) hypertension; E78.00 Pure hypercholesterolemia, unspecified
CPT/HCPCS: 36415; 71010; 80053; 81001; 82803; 82948; 83880; 84484; 85025; 85610; 85730; 87040; 93005; 96374; 99285; G0378; J1940; J2405

== ENCOUNTER 2017-02-16 13:29 | Observation (INO) | payer MEDICARE, MEDICAID ==
[2017-02-16 13:29] VITALS: BMI 26.4
--- NOTE | 2017-02-16 14:01 | C.PDOC ---
History Of Present Illness pt is a 56 yo with pmh signif for CHF and pacer placement.now presents with c/o worsening SOB over last 1 week or so.Pt has 2 pillow orthopnea,swelling of his legs,pos cough productive of dark sputum.Pt also notes increased abdominal distension as well as poor appetite and 8 lb weight gain Time Seen by Provider: 02/16/17 13:57 Chief Complaint (Nursing): Shortness Of Breath History Per: Patient, Life Scientist History/Exam Limitations: no limitations Onset/Duration Of Symptoms: Waxing/Waning Current Symptoms Are (Timing): Still Present Exacerbating Factor(s): Exertion Associated Symptoms: Heart Racing. denies: Fever, Chills, Sweating, Chest Pain Past Medical History Reviewed: Historical Data Vital Signs: Last Vital Signs Temp 97.5 F L 02/16/17 17:25 Pulse 101 H 02/16/17 17:25 Resp 20 02/16/17 17:25 BP 135/87 02/16/17 17:25 Pulse Ox 99 02/16/17 17:25 - Medical History PMH: Asthma, CHF, Diabetes, HTN, Hypercholesterolemia Surgical History: Pacemaker - [facility] Procedures CLOSURE SKIN & SUBCUTANEOUS NEC (09/25/12) MEASURE OF CARDIAC SAMPL & PRESSURE, L HEART, PERC APPROACH (04/02/16) OTHER LOCAL DESTRUC SKIN (10/11/14) OTHER SKIN & SUBQ I D (02/04/15) PLAIN RADIOGRAPHY OF LEFT HEART USING OTHER CONTRAST (04/02/16) PLAIN RADIOGRAPHY OF MULT COR ART USING OTH CONTRAST (04/02/16) RADICAL EXCIS SKIN LES (10/11/14) TETANUS TOXOID ADMINIST (02/04/15) Family History: States: Unknown Family Hx - Social History Hx Tobacco Use: Yes Hx Alcohol Use: Yes Hx Substance Use: No - Immunization History Hx Tetanus Toxoid Vaccination: Yes (09/25/2012) Hx Influenza Vaccination: Yes Hx Pneumococcal Vaccination: Yes Review Of Systems Except As Marked, All Systems Reviewed And Found Negative. Constitutional: Negative for: Fever, Chills, Sweats Cardiovascular: Negative for: Chest Pain, Palpitations Respiratory: Positive for: Shortness of Breath Physical Exam - Physical Exam Appears: In Acute Distress Skin: Normal Color Head: Atraumatic Eye(s): bilateral: Normal Inspection, PERRL, EOMI Nose: Normal Lips: Normal Appearing Neck: Normal Lymphatic: Normal Exam Chest: Symmetrical, Other (pacer noted to L chest wall) Cardiovascular: Rhythm Regular, Other (resting tachycardia) Respiratory: Decreased Breath Sounds, Rales Gastrointestinal/Abdominal: Normal Exam, Distention Rectal: Deferred Back: Normal Inspection Extremity: Pedal Edema ED Course And Treatment - Laboratory Results Result Diagrams: 02/16/17 14:27 02/16/17 14:27 Lab Interpretation: Normal ECG Rhythm: Sinus Tachycardia, V Paced (atrial sensed,ventricular paced rhythm) ECG Interpretation: Abnormal Interpretation Of ECG: no old ekgs for comparison.There is an atrial sensing 100 % ventricular paced rhythm O2 Sat by Pulse Oximetry: 100 Medical Decision Making Medical Decision Making: pt with decompensated CHF.Will admit for monitering and diuresis Disposition Discussed With Dr.: Winter Hurst - Disposition Disposition: HOSPITALIZED Disposition Time: 15:13 Condition: FAIR - Clinical Impression Clinical Impression: Congestive heart failure (CHF) Decision To Admit - Pt Status Changed To: Hospital Disposition Of: Observation - . Bed Request Type: Telemetry Admitting Physician: Winter Hurst Patient Diagnosis: Congestive heart failure (CHF)
--- NOTE | 2017-02-16 14:34 | RAD ---
PROCEDURE: CHEST RADIOGRAPH, 1 VIEW HISTORY: SOB COMPARISON: Portable chest 01/24/2017. FINDINGS: LUNGS: No left basilar infiltrate. Limited right medial basilar infiltrate remains. PLEURA: Trace right pleural effusion is not excluded. None is seen the left. No pneumothorax bilaterally. CARDIOVASCULAR: Pacemaker again noted. Cardiac size is stable. Borderline pulmonary vascular derangement. OSSEOUS STRUCTURES: No significant abnormalities. VISUALIZED UPPER ABDOMEN: Normal. OTHER FINDINGS: None. IMPRESSION: Interval improvement in pulmonary vascular derangement and left basilar infiltrate which is not identified in the interval. Limited residual right basilar airspace disease remains as well as potential trace right pleural effusion.
[2017-02-16 14:42] LABS: BASO # 0.2 K/uL (0.0-0.2); BASO % 1.7 % (0.0-2.0); EOS # 0.1 K/uL (0.0-0.7); EOS % 0.6 % (0.0-4.0); HEMATOCRIT 36.4 % (35.0-51.0); LYMPH # 1.7 K/uL (1.0-4.3); LYMPH % 18.4 % (20.0-40.0); MEAN CORPUSCULAR HEMOGLOBIN 23.3 pg (27.0-31.0); MEAN CORPUSCULAR HGB CONC 31.9 g/dL (33.0-37.0); MEAN PLATELET VOLUME 9.7 fL (7.2-11.7); MONO # 0.7 K/uL (0.0-0.8); MONO % 7.8 % (0.0-10.0); NRBC % 0.2 % (0.0-2.0); WHITE BLOOD COUNT 9.4 K/uL (4.8-10.8)
[2017-02-16 14:43] LABS: POTASSIUM 4.6 mmol/L (3.6-5.2); SODIUM 135 mmol/L (132-148)
[2017-02-16 14:45] LABS: ALB/GLOB RATIO 1.4 (1.0-2.1); ALKALINE PHOSPHATASE 69 U/L (38-126); AST/SGOT 35 U/L (17-59); BILIRUBIN,TOTAL 0.7 mg/dL (0.2-1.3); CARBON DIOXIDE 19 mmol/L (22-30); GFR AFRICAN-AMERICAN > 60
[2017-02-16 14:46] LABS: ALT/SGPT 32 U/L (21-72); BLOOD UREA NITROGEN 18 mg/dL (9-20); CALCIUM 8.7 mg/dl (8.6-10.4); GLUCOSE,RANDOM 127 mg/dL (75-110)
[2017-02-16 14:48] LABS: CHLORIDE 96 mmol/L (98-107)
[2017-02-16] MEDS ORDERED: Nitroglycerin 2% Ointment Foilpak UD TOP STA (15:21)
[2017-02-16] MEDS ORDERED: Nitroglycerin 2% Ointment Foilpak UD TOP ONE (15:52)
[2017-02-16 16:12] LABS: RBC URINE 2 /hpf (0-3); URINE BACTERIA RARE (<OCC); URINE BILIRUBIN NEGATIVE (NEGATIVE); URINE BLOOD NEGATIVE (NEGATIVE); URINE GLUCOSE (UA) NORMAL (Normal); URINE KETONE NEGATIVE (NEGATIVE); URINE LEUKOCYTE ESTERASE NEG Leu/uL (Negative); URINE PROTEIN 3+ mg/dL (NEGATIVE); URINE UROBILINOGEN NORMAL mg/dL (0.2-1.0); WBC URINE 2 /hpf (0-5)
[2017-02-16 16:22] LABS: URINE COLOR YELLOW (YELLOW)
[2017-02-16] MEDS: (Novolog) Insulin Aspart, Recombinant 100 u/ml 10 ml vial SC SCH (22:00)
[2017-02-17] MEDS: (Novolog) Insulin Aspart, Recombinant 100 u/ml 10 ml vial SC SCH ×4 (07:30→21:04)
[2017-02-17] MEDS ORDERED: Influenza Vaccine 60 mcg/0.5 mL SYR (4YR UP) IM ONE (10:00)
[2017-02-17] MEDS: Enoxaparin 40 mg Syringe SC SCH (11:12)
--- NOTE | 2017-02-17 19:57 | PN ---
DAILY PROGRESS NOTE DATE: 02/17/2017 SUBJECTIVE: He is less short of breath, but he still has swelling of both lower extremities. PHYSICAL EXAMINATION: VITAL SIGNS: Blood pressure 123/72, temperature 97.5, respiratory rate 18, and pulse 89. HEENT: Pupils are equal and reactive to light. Normal-appearing mucosa of the conjunctivae, oropharynx, and nasal membrane mucosa. NECK: Supple. No JVD. No carotid bruit. No lymph node. No thyromegaly. CHEST AND LUNGS: Bilateral symmetrical expansion. Good air exchange. No rales and no rhonchi. CARDIOVASCULAR SYSTEM: PMI not localized. S1 and S2. No additional sounds. ABDOMEN: Normoactive bowel sounds. No tenderness. No organomegaly. No masses. EXTREMITIES: No cyanosis. No clubbing. Edema +1 of both lower extremities. CENTRAL NERVOUS SYSTEM: Alert, awake, and oriented x3. No neurological deficit could be appreciated. ASSESSMENT: 1. Acute exacerbation of congestive heart failure acute on top of chronic, systolic, and diastolic secondary to volume overload. The patient was not compliant to fluid restriction. 2. Status post implantable cardioverter-defibrillator placement. 3. Type 2 diabetes mellitus. 4. Hypertension. PLAN: Continue with diuretics and monitor electrolytes and repeat chest x-ray. Winter Hurst MD
[2017-02-18 06:47] LABS: HEMATOCRIT 33.8 % (35.0-51.0); MEAN CELL VOLUME 72.1 fL (80.0-94.0); MEAN CORPUSCULAR HGB CONC 31.9 g/dL (33.0-37.0); MEAN PLATELET VOLUME 9.4 fL (7.2-11.7); RED CELL DISTRIBUTION WIDTH 17.9 % (11.5-14.5); WHITE BLOOD COUNT 8.3 K/uL (4.8-10.8)
[2017-02-18 07:48] LABS: CHLORIDE 95 mmol/L (98-107); SODIUM 133 mmol/L (132-148)
[2017-02-18 07:49] LABS: POTASSIUM 4.4 mmol/L (3.6-5.2)
[2017-02-18 07:51] LABS: GFR AFRICAN-AMERICAN > 60
[2017-02-18 07:52] LABS: BLOOD UREA NITROGEN 22 mg/dL (9-20); CALCIUM 9.2 mg/dl (8.6-10.4); CARBON DIOXIDE 26 mmol/L (22-30); GLUCOSE,RANDOM 106 mg/dL (75-110)
[2017-02-18] MEDS: (Novolog) Insulin Aspart, Recombinant 100 u/ml 10 ml vial SC SCH ×2 (08:19→12:57)
[2017-02-18 09:05] LABS: BASO # 0.1 K/uL (0.0-0.2); EOS # 0.2 K/uL (0.0-0.7); LYMPH # 1.7 K/uL (1.0-4.3); MONO # 0.6 K/uL (0.0-0.8)
[2017-02-18] MEDS: Enoxaparin 40 mg Syringe SC SCH (09:44)
[2017-02-18] MEDS ORDERED: Influenza Vaccine 60 mcg/0.5 mL SYR (4YR UP) IM ONE (10:00)
--- NOTE | 2017-02-18 10:14 | HP ---
HISTORY OF PRESENT ILLNESS: This is a 56-year-old male with history of dilated cardiomyopathy with ejection fraction of 25%, status post ICD placement. Patient presented to emergency room with symptoms of progressive shortness of breath over 12 hours. Patient was drinking what he thought that it is colon cleansing fluids. Patient ingested large amounts of fluid after which he started to feel short of breath and in respiratory distress. Patient was brought to the emergency room where he was found to be in heart failure with volume overload and elevated proBNP to 24,900. Patient was started on Lasix and admitted for further management to telemetry floor. PAST MEDICAL HISTORY: Dilated cardiomyopathy, status post ICD placement, hypercholesterolemia, type 2 diabetes mellitus, seizure disorder. FAMILY HISTORY: Noncontributory. SOCIAL HISTORY: Denied smoking, EtOH or substance abuse. ALLERGIES: No known allergies. HOME MEDICATIONS: Patient is on Ambien 5 mg at bedtime, aspirin 81 mg daily, Coreg 6.25 twice a day, Crestor 20 mg daily, metformin 500 mg twice a day, Keppra 500 mg twice a day, Lasix 40 mg daily, gabapentin 300 mg at bedtime, Pepcid 20 mg daily, Plavix 75 mg daily, fenofibrate 145 mg daily. REVIEW OF SYSTEMS: Other review of systems is negative. PHYSICAL EXAMINATION GENERAL: Patient is comfortable at the time of this examination. VITAL SIGNS: Blood pressure of 135/87, temperature 97.5, respiratory rate 20 and pulse of 100. HEENT: Pupils equal and reactive to light. Normal appearing mucosa of the conjunctivae, oropharynx and nasal membrane mucosa. NECK: Supple. No JVD. No carotid bruit. No lymph node. No thyromegaly. CHEST AND LUNGS: Bilateral symmetrical expansion. Good air exchange. No rales. No rhonchi. CARDIOVASCULAR SYSTEM: PMI not localized. S1 and S2. No additional sounds. ABDOMEN: Normoactive bowel sounds. No tenderness. No organomegaly. No masses. EXTREMITIES: No cyanosis. No clubbing. No edema. CENTRAL NERVOUS SYSTEM: Alert, awake, and oriented x3. No neurological deficits could be appreciated. ASSESSMENT: 1. Exacerbation of congestive heart failure, both acute systolic and diastolic on chronic systolic and diastolic heart failure secondary to volume overload. 2. Type 2 diabetes mellitus. PLAN: Continue Lasix 40 mg IV every 12 hours. Resume patient's home medications and we will monitor electrolytes. [facility] MD [place] [facility] # [id number]
--- NOTE | 2017-02-18 10:19 | RAD ---
Chest x-ray two views History: Congestive heart failure. Comparison: 02/16/2017 Findings: Mild venous congestion. Patchy increased markings at both lung bases ; right greater than left with trace right pleural effusion. Bilateral hilar prominence. Left-sided pacemaker. Top normal heart size. Degenerative changes in the spine and shoulders. Calcification at the aortic knob. Impression: Mild venous congestion. Patchy increased markings at both lung bases ; right greater than left with trace right pleural effusion. Bilateral hilar prominence. Left-sided pacemaker. Top normal heart size. Degenerative changes in the spine and shoulders. Calcification at the aortic knob.
--- NOTE | 2017-02-18 14:17 | CP.PCM.PN ---
Subjective - Date & Time of Evaluation Date of Evaluation: 02/18/17 Time of Evaluation: 14:00 - Subjective Subjective: IRRIGATIONIST NOTES 56 yr old male admitted for SOB/exc. CHF Patient seen today , denies any chest pain, sob, palpitations, dizziness, N/V/D no overnight events reported by RN seen by Dr. Hurst this am cxr done today - Mild venous congestion. Patchy increased markings at both lung bases ; right greater than left with trace right pleural effusion. Bilateral hilar prominence. Left-sided pacemaker. CXR result reviewed with Dr. Hurst , as per Dr. Hurst patient can be discharged home today and f/u with Dr. Hurst office in 1 week discharge plan discussed with patient who understands and agrees with plan Patient instructed to returns to ED if symptoms get worse or any other concerning symptoms Objective - Vital Signs/Intake and Output Vital Signs (last 24 hours): Temp Pulse Resp BP Pulse Ox 98.2 F 92 H 20 121/79 95 02/18/17 07:15 02/18/17 09:37 02/18/17 07:15 02/18/17 09:39 02/18/17 07:15 - Medications Medications: Current Medications Aspirin (Aspirin Chewable) 81 mg PO DAILY [facility] Last Admin: 02/18/17 09:41 Dose: 81 mg Carvedilol (Coreg) 6.25 mg PO BID [facility] Last Admin: 02/18/17 09:41 Dose: 6.25 mg Clopidogrel Bisulfate (Plavix) 75 mg PO DAILY [facility] Last Admin: 02/18/17 09:41 Dose: 75 mg Enoxaparin Sodium (Lovenox) 40 mg SC DAILY [facility] Last Admin: 02/18/17 09:44 Dose: 40 mg Famotidine (Pepcid) 20 mg PO DAILY [facility] Last Admin: 02/18/17 09:41 Dose: 20 mg Fenofibrate (Tricor) 145 mg PO QPM [facility] Last Admin: 02/17/17 17:44 Dose: 145 mg Furosemide (Lasix) 40 mg IVP Q12 [facility] Last Admin: 02/18/17 09:39 Dose: 40 mg Gabapentin (Neurontin) 300 mg PO HS [facility] Last Admin: 02/17/17 21:23 Dose: 300 mg Insulin Aspart (Novolog) 0 unit SC ACHS [facility] PRN Reason: Protocol Last Admin: 02/18/17 12:57 Dose: 2 unit Levetiracetam (Keppra) 500 mg PO BID [facility] Last Admin: 02/18/17 09:41 Dose: 500 mg Metformin HCl (Glucophage) 500 mg PO BIDCC [facility] Last Admin: 02/18/17 08:39 Dose: 500 mg Rosuvastatin Calcium (Crestor) 20 mg PO HS [facility] Last Admin: 02/17/17 21:22 Dose: 20 mg Zolpidem Tartrate (Ambien) 5 mg PO HS PRN PRN Reason: Insomnia Last Admin: 02/17/17 21:31 Dose: 5 mg - Labs Labs: 02/18/17 06:14 02/18/17 06:14
--- NOTE | 2017-02-18 14:17 | PCM.HF ---
Heart Failure Core Measure - Heart Failure Ejection Fraction: 40 % or Greater NELA Inhibitor Prescribed: No Contraindication/Reason for not providing: on ARB Beta-Suzy Prescribed: Carvedilol Angiotensin II Receptor Suzy Prescribed: Yes AnticoagulationTherapy for Atrial Fibrillation/Atrialflutter: No Contraindication/Reason for not providing: no hx of a fib Aldosterone Antagonist Prescribed: No Contraindication/Reason for not providing: ef>45 Hydralazine Nitrate Prescribed: No Contraindication/Reason for not providing: ef>45 Implantable Cardioverter Defibrillator Therapy: Yes Cardiac Resynchronization Therapy Prescribed: No Contraindication/Reason for not providing: NSR - Follow up Will be discharged to: Home Follow Up Date (must be within 7 days from discharge): 02/24/17 Follow Up Time: 09:00
[2017-02-18 15:40] VITALS: RESP 18
[2017-02-18 15:47] VITALS: BP 118/76; PULSE 82; TEMP 97.5; O2SAT 97
--- NOTE | 2017-02-19 02:07 | DS ---
REASON FOR ADMISSION: This is a 56-year-old male with history of multiple medical problems, was admitted for exacerbation of congestive heart failure. COURSE OF HOSPITALIZATION: The patient was admitted to telemetry floor and he was started on diuretics since he was in the emergency room. The patient was taking extra amount of fluid on the day of admission, as a colon cleanser. The patient denied to have any chest pain or respiratory symptoms. The patient admits that he is having cough secondary to congestion. Chest x-ray on discharge, the patient has pulmonary congestion. ASSESSMENT: 1. Congestive heart failure acute on top of chronic, both systolic and diastolic. 2. Hypertension. 3. Atherosclerotic cerebrovascular and cardiovascular disease. PLAN: We will see the patient next week and continue current medications. [facility] MD [place]
--- NOTE | 2017-02-21 06:41 | CARD ---
APPROVED REPORT EKG Measurement Heart [id number] [id number] <Conclusion> Atrial-sensed ventricular-paced rhythm Abnormal ECG
== END 2017-02-18 14:55 | disposition home or self-care (01) ==
LOC: C.ER 13:29 → C.9E 15:15 → C.6T 16:37
PROVIDERS: ADMIT Internal Medicine; ATTEND Internal Medicine
DX: I11.0 Hypertensive heart disease with heart failure (principal); I42.0 Dilated cardiomyopathy; I50.42 Chronic combined systolic (congestive) and diastolic (congestive) heart failure; Z79.02 Long term (current) use of antithrombotics/antiplatelets; Z87.891 Personal history of nicotine dependence; Z95.810 Presence of automatic (implantable) cardiac defibrillator; J45.909 Unspecified asthma, uncomplicated; I25.10 Atherosclerotic heart disease of native coronary artery without angina pectoris; G40.909 Epilepsy, unspecified, not intractable, without status epilepticus; E11.9 Type 2 diabetes mellitus without complications
CPT/HCPCS: 36415; 71010; 71020; 80048; 80053; 81001; 82948; 83880; 84484; 85025; 90674; 96374; 97116; 97162; 99284; G0378; G8978; G8979; J1650; J1940

== ENCOUNTER 2017-08-17 17:21 | Emergency (ER) | payer MEDICARE, MEDICAID ==
[2017-08-17 17:22] VITALS: BMI 26.4
[2017-08-17 17:59] LABS: BASO # 0.1 K/uL (0.0-0.2); BASO % 1.2 % (0.0-2.0); EOS # 0.3 K/uL (0.0-0.7); EOS % 2.8 % (0.0-4.0); LYMPH # 1.6 K/uL (1.0-4.3); LYMPH % 17.1 % (20.0-40.0); MEAN CORPUSCULAR HEMOGLOBIN 29.6 pg (27.0-31.0); MEAN CORPUSCULAR HGB CONC 32.9 g/dL (33.0-37.0); MONO # 0.7 K/uL (0.0-0.8); MONO % 7.8 % (0.0-10.0); NEUT # 6.8 K/uL (1.8-7.0); NEUT % 71.1 % (50.0-75.0); RBC 2.2 Mil/uL (4.40-5.90); RED CELL DISTRIBUTION WIDTH 15.8 % (11.5-14.5); WHITE BLOOD COUNT 9.5 K/uL (4.8-10.8)
--- NOTE | 2017-08-17 18:01 | C.PDOC ---
History Of Present Illness 57 year old male presents to the ED after being referred by his PMD for evaluation of persistent anemia. Patient was noted to have hemoglobin level of 6.4g/dL in PMD's office earlier today. Patient has a left ventricular assistance device in place for which he is anticoagulated with Coumadin. Patient also reports having dark stools and an approximately 40lb weight loss within the last year. Patient is compliant with iron and denies fever, chills, nausea, and vomiting at this time. PMD. Dr. Hurst [facility] Time Seen by Provider: 08/17/17 17:42 Chief Complaint (Nursing): Abnormal Labs History Per: Patient History/Exam Limitations: no limitations Onset/Duration Of Symptoms: Hrs, Persistent Current Symptoms Are (Timing): Still Present Additional History Per: Patient Past Medical History Reviewed: Historical Data, Nursing Documentation, Vital Signs Vital Signs: Last Vital Signs Temp 98.2 F 08/18/17 00:02 Pulse 113 H 08/18/17 00:50 Resp 17 08/18/17 00:50 BP 110/84 08/18/17 00:50 Pulse Ox 100 08/18/17 00:50 - Medical History PMH: Asthma, CAD, CHF, Diabetes, HTN, Hypercholesterolemia Surgical History: Coronary Stent, Pacemaker - [facility] Procedures CLOSURE SKIN & SUBCUTANEOUS NEC (09/25/12) FLUOROSCOPY OF SUPERIOR VENA CAVA, GUIDANCE (05/27/17) INSERTION OF INFUSION DEV INTO SUP VENA CAVA, PERC APPROACH (05/27/17) MEASURE OF CARDIAC SAMPL & PRESSURE, L HEART, PERC APPROACH (04/02/16) OTHER LOCAL DESTRUC SKIN (10/11/14) OTHER SKIN & SUBQ I D (02/04/15) PLAIN RADIOGRAPHY OF LEFT HEART USING OTHER CONTRAST (04/02/16) PLAIN RADIOGRAPHY OF MULT COR ART USING OTH CONTRAST (04/02/16) RADICAL EXCIS SKIN LES (10/11/14) REMOVAL OF INFUSION DEVICE FROM GREAT VESSEL, PERC APPROACH (05/27/17) TETANUS TOXOID ADMINIST (02/04/15) ULTRASONOGRAPHY OF SUPERIOR VENA CAVA, GUIDANCE (05/27/17) Family History: States: Unknown Family Hx - Social History Hx Tobacco Use: Yes Hx Alcohol Use: No Hx Substance Use: No - Immunization History Hx Tetanus Toxoid Vaccination: Yes (09/25/2012) Hx Influenza Vaccination: Yes Hx Pneumococcal Vaccination: Yes Review Of Systems Constitutional: Positive for: Weight loss (around 40lbs within past year ), Other (persistent anemia ). Negative for: Fever, Chills Gastrointestinal: Positive for: Other (dark stools ). Negative for: Nausea, Vomiting Physical Exam - Physical Exam Appears: Non-toxic, No Acute Distress, Chronically Ill, Other (thin) Skin: Warm, Dry, Pale Head: Atraumatic, Normacephalic Eye(s): bilateral: Normal Inspection Oral Mucosa: Moist Neck: Supple Chest: Symmetrical, No Deformity, No Tenderness Cardiovascular: Rhythm Regular, No Murmur, Other (weak valvular sounds noted ) Respiratory: Normal Breath Sounds, No Rales, No Rhonchi, No Wheezing Gastrointestinal/Abdominal: Soft, No Tenderness, No Guarding, No Rebound Rectal: Other (dark, tarry stool noted) Extremity: Normal ROM, Capillary Refill (less than 2 seconds ) Neurological/Psych: Oriented x3, Normal Speech, Normal Cognition ED Course And Treatment - Laboratory Results Result Diagrams: 08/17/17 17:52 08/17/17 17:52 Lab Interpretation: Abnormal (trop + 0.954 H, + occult stool blood) ECG: Interpreted By Tx ECG Rhythm: AV Paced Interpretation Of ECG: AV Paced rhythm at 107 bpm with interference from mechanical pump. Rate From EC O2 Sat by Pulse Oximetry: 99 (on RA) Pulse Ox Interpretation: Normal - Radiology CXR: Interpreted by Tx CXR Interpretation: Yes: No Acute Disease, Other (+ heart device) Progress Note: Bloodwork, UA, CXR, CT, EKG ordered and reviewed. blood tx ordered. Requested ICU consult because patient presents with low hemoglobin and positive troponin in the ED. Case discussed with Dr. Yifan Orellana (Conventional Machinist), who discussed various potential complications such as AVMs in the abdomen, leaks , and GI bleeding, which require further evaluation. Discussed with patient's family that patient is best served by the surgeons at [facility], where patient initally had his pump placed. Case discussed at with Resident at [facility] at 21:00, who agreed to accept the transfer. Reevaluation Time: 18:29 Reassessment Condition: Improved - Physician Consult Information Outcome Of Conversation: 1800, 183- d/w nette Myers to admit and start blood tx's. 2049: d/w nette Mann pt transferred to [facility] for more focused care of LVAD and to dx pt's chronic anemia and perform GI workup. multiple calls to arrange transfer to [facility]. 2229: d/w nette Mann to keep pt in ICU/Tele overnight to blood transfusions and plan to d/c in AM for opt f/u @ [facility] Critical Care Time - Critical Care Note Total Time (in mins): 120 Documented critical care: time excludes all time spent performing seperately billable procedures. Medical Decision Making Medical Decision Making: chronic slow GIB prob related to chronic coumadin therapy for heart device, NSTEMI related to strain no anticoagulation as INR already theraputic though pt initally agreed to transfer to [facility] for care with his LVAD Team, pt later recanted and desires to stay inpt @ so his may stay with him and manage his LVAD. ICU consult appreciated suggests pt better evaluated with the LVAD team, and LVAD team WANTS pt to be tx for closer obs, eval of device, and eval of anemia. 6-8 phone calls and discussions w PMD, ICU, NBI ultimately agree to compromise pt will tx 2 u PRBC's overnght in ICU and d/c in AM. ? consult w Dr. Kumar 2300: concerns by Nursing Play Leader- pt may NOT be admitted as no staff qualified to manage the LVAD except the ICU MD 2330: pt cannot be admitted, pt's transfer to [facility] is cancelled as pt refuses to be transferred Dr. Hurst wants 2nd unit of PRBC's transfused overnight in ED then pt d/c home approx 0300. case d/w Dr. Quintero- overnight ED attending- nette if pt's discharge paperwork is completed and pt planning to d/c as ED a NO resources nor staff to cope with complications of pt's LVAD (should they occur) overnight in ED 0030: 2nd unit of PRBC's tranfusing, pt tolerating well discharge papers prepared and will d/c when tx completed. Disposition Doctor Will See Patient In The: Hospital Counseled Patient/Family Regarding: Studies Performed, Diagnosis - Disposition Disposition: HOSPITALIZED Disposition Time: 18:30 Condition: GOOD Forms: [employer] (Uzbek) - Clinical Impression Clinical Impression: NSTEMI (non-ST elevated myocardial infarction), Abnormal laboratory test result , Symptomatic anemia, History of left ventricular assist device (LVAD) - Scribe Statement The provider has reviewed the documentation as recorded by the Scribe (Jahaira Orellana) Provider Attestation: All medical record entries made by the Scribe were at my direction and personally dictated by me. I have reviewed the chart and agree that the record accurately reflects my personal performance of the history, physical exam, medical decision making, and the department course for this patient. I have also personally directed, reviewed, and agree with the discharge instructions and disposition.
[2017-08-17 18:04] LABS: HEMOGLOBIN 6.5 g/dL (12.0-18.0); MEAN CELL VOLUME 89.9 fL (80.0-94.0)
[2017-08-17 18:06] LABS: INR 2.3
[2017-08-17 18:07] LABS: PROTHROMBIN TIME 27.2 SECONDS (9.7-12.2)
[2017-08-17 18:10] LABS: ALB/GLOB RATIO 1.1 (1.0-2.1); ALBUMIN 3.9 g/dL (3.5-5.0); ALT/SGPT 27 U/L (21-72); AST/SGOT 39 U/L (17-59); BLOOD UREA NITROGEN 18 mg/dL (9-20); CALCIUM 8.3 mg/dl (8.6-10.4); GFR AFRICAN-AMERICAN > 60; GFR NON-AFRICAN AMERICAN > 60
--- NOTE | 2017-08-17 18:19 | RAD ---
PROCEDURE: CHEST RADIOGRAPH, 1 VIEW HISTORY: SOB COMPARISON: 02/18/2017 FINDINGS: LUNGS: Clear. PLEURA: No pneumothorax or pleural fluid seen. CARDIOVASCULAR: Normal heart size. Sternotomy wires. Permanent pacemaker. There is a port device overlying the left hemidiaphragm with a catheter or electrode extending over or into the midline of the abdomen. Uncertain significance. Interval change since prior examination. OSSEOUS STRUCTURES: No significant abnormalities. VISUALIZED UPPER ABDOMEN: Normal. OTHER FINDINGS: None. IMPRESSION: There is a port device overlying left hemidiaphragm of uncertain significance. Interval sternotomy. Permanent pacemaker. No infiltrate.
[2017-08-17 18:24] LABS: B-TYPE NATRIURETIC PEPTIDE 6090 pg/mL (0-900)
[2017-08-17 18:57] LABS: URINE BILIRUBIN NEGATIVE (NEGATIVE); URINE BLOOD NEGATIVE (NEGATIVE); URINE CLARITY Hazy (Clear); URINE GLUCOSE (UA) NORMAL (Normal); URINE LEUKOCYTE ESTERASE NEG Leu/uL (Negative); URINE PROTEIN NEGATIVE (NEGATIVE); URINE UROBILINOGEN NORMAL mg/dL (0.2-1.0)
[2017-08-17 18:59] LABS: URINE COLOR YELLOW (YELLOW)
--- NOTE | 2017-08-17 20:11 | CP.PCM.CON ---
History of Present Illness - History of Present Illness History of Present Illness: 57 y/o male with Pmx of severe heart failure, with recent LV assist device. Patient had device placed at [facility]. Patient does not have have any information regarding name of surgeon. Patient notes he takes iron and has black stool denies any chest pain, denies any abdominal (+)heart failure, dyspena upon exerction, patient notes he has follow up. Review of Systems - Constitutional Constitutional: Fatigue, Lethargy - EENT Eyes: absent: Change in Vision - Cardiovascular Cardiovascular: Dyspnea - Respiratory Respiratory: Dyspnea on Exertion - Gastrointestinal Gastrointestinal: Melena Past Patient History - Infectious Disease Hx of Infectious Diseases: None - Tetanus Immunizations Tetanus Immunization: Unknown - Past Medical History & Family History Past Medical History?: Yes - Past Social History Smoking Status: Former Smoker - CARDIAC Hx Congestive Heart Failure: Yes Hx Hypercholesterolemia: Yes Hx Hypertension: Yes Hx Pacemaker: Yes - PULMONARY Hx Asthma: Yes - NEUROLOGICAL Hx Neurological Disorder: No - HEENT Hx HEENT Problems: No - ENDOCRINE/METABOLIC Hx Endocrine Disorders: Yes Hx Adrenal Cancer: No - HEMATOLOGICAL/ONCOLOGICAL Hx Blood Disorders: No - INTEGUMENTARY Hx Dermatological Problems: No - MUSCULOSKELETAL/RHEUMATOLOGICAL Hx Musculoskeletal Disorders: No Hx Falls: No - GASTROINTESTINAL Hx Gastrointestinal Disorders: Yes Hx Ulcer: Yes - GENITOURINARY/GYNECOLOGICAL Hx Genitourinary Disorders: No - PSYCHIATRIC Hx Substance Use: No - SURGICAL HISTORY Hx Coronary Stent: Yes - ANESTHESIA Hx Anesthesia: Yes Hx Anesthesia Reactions: No Hx Malignant Hyperthermia: No Meds Allergies/Adverse Reactions: Allergies Allergy/AdvReac Type Severity Reaction Status Date / Time No Known Allergies Allergy Verified 08/17/17 17:31 Results - Vital Signs Recent Vital Signs: Last Vital Signs Temp 97.9 F 08/17/17 19:27 Pulse 105 H 08/17/17 19:27 Resp 16 08/17/17 19:27 BP 92/71 L 08/17/17 19:27 Pulse Ox 100 08/17/17 19:27 - Labs Result Diagrams: 08/17/17 17:52 08/17/17 17:52 Labs: Laboratory Results - last 24 hr 08/17/17 08/17/17 08/17/17 17:52 17:52 17:52 WBC 9.5 RBC 2.20 L Hgb 6.5 L* D Hct 19.8 L MCV 89.9 D MCH 29.6 MCHC 32.9 L RDW 15.8 H Plt Count 354 MPV 8.0 Neut % (Auto) 71.1 Lymph % (Auto) 17.1 L [place] % (Auto) 7.8 Eos % (Auto) 2.8 Baso % (Auto) 1.2 Neut # (Auto) 6.8 Lymph # (Auto) 1.6 [place] # (Auto) 0.7 Eos # (Auto) 0.3 Baso # (Auto) 0.1 PT 27.2 H INR 2.3 APTT 44 H Sodium 141 Potassium 5.1 Chloride 100 Carbon Dioxide 23 Anion Gap 23 H BUN 18 Creatinine 0.8 Est GFR ( Amer) > 60 Est GFR (Non-Af Amer) > 60 Random Glucose 114 H Calcium 8.3 L Total Bilirubin 0.4 AST 39 ALT 27 Alkaline Phosphatase 119 Troponin I 0.9540 H* NT-Pro-B Natriuret Pep 6090 H Total Protein 7.3 Albumin 3.9 Globulin 3.4 Albumin/Globulin Ratio 1.1 Urine Color Urine Clarity Urine pH Ur Specific [place] Urine Protein Urine Glucose (UA) Urine Ketones Urine Blood Urine Nitrate Urine Bilirubin Urine Urobilinogen Ur Leukocyte Esterase Urine WBC (Auto) Urine RBC (Auto) Stool Occult Blood Blood Type Antibody Screen 08/17/17 08/17/17 08/17/17 17:52 18:06 18:49 WBC RBC Hgb Hct MCV MCH MCHC RDW Plt Count MPV Neut % (Auto) Lymph % (Auto) [place] % (Auto) Eos % (Auto) Baso % (Auto) Neut # (Auto) Lymph # (Auto) [place] # (Auto) Eos # (Auto) Baso # (Auto) PT INR APTT Sodium Potassium Chloride Carbon Dioxide Anion Gap BUN Creatinine Est GFR ( Amer) Est GFR (Non-Af Amer) Random Glucose Calcium Total Bilirubin AST ALT Alkaline Phosphatase Troponin I NT-Pro-B Natriuret Pep Total Protein Albumin Globulin Albumin/Globulin Ratio Urine Color Yellow Urine Clarity Hazy Urine pH 5.0 Ur Specific [place] 1.018 Urine Protein Negative Urine Glucose (UA) Normal Urine Ketones Negative Urine Blood Negative Urine Nitrate Negative Urine Bilirubin Negative Urine Urobilinogen Normal Ur Leukocyte Esterase Neg Urine WBC (Auto) < 1 Urine RBC (Auto) 2 Stool Occult Blood Positive H Blood Type A NEGATIVE Antibody Screen Negative Assessment & Plan - Assessment and Plan (Free Text) Plan: -Anemia: etiology, ? leakage of LVAD versus lower Gi bleed, BUN normal, obtain CT abd/pelvis, tranfuse to keep hb/hct >8/24, lasix 20 mg between transfusions -LVAD: obtain information from patient's LVAD team, and attempt to contact to improve continuity of care -NSTEMI: suspect post heart surgery, EKG epnding -PPI q12 -DVt INr >2.2 Patient remains hemodynamically stable, talking on the phone and browsing the internet. above management d/w Er physician. Patient will benefit from close monitoring. Addendum: Called Patient's LVAD team Dr. Zaabla, who advsied to transfer patient to [facility] for closer monitoring under the LVAD team. (Dr. Varghese CT surgeon). - Date & Time Date: 08/17/17 Time: 20:14
[2017-08-17 20:19] LABS: BILIRUBIN,DIRECT 0.3 mg/dL (0.0-0.4)
[2017-08-18 01:17] VITALS: O2SAT 99
[2017-08-18 03:01] VITALS: BP 119/78; PULSE 105; RESP 20; TEMP 98.2
--- NOTE | 2017-08-20 10:17 | CARD ---
APPROVED REPORT EKG Measurement Heart [id number] CO [id number] <Conclusion> Atrial-sensed ventricular-paced rhythm Abnormal ECG
== END 2017-08-18 03:03 | disposition home or self-care (01) ==
LOC: C.ER 17:21 → UNDOADMIN 18:25 → C.9E 18:25 → C.6T 19:25 → C.9E 19:25 → C.6T 21:01 → C.9E 21:01 → C.ER 08-18 03:03
DX: I21.4 Non-ST elevation (NSTEMI) myocardial infarction (principal); D64.9 Anemia, unspecified; K92.1 Melena; Z79.01 Long term (current) use of anticoagulants; Z95.811 Presence of heart assist device
CPT/HCPCS: 36430; 71045; 80053; 81001; 82248; 83615; 83880; 84484; 85025; 85610; 85730; 86850; 86900; 86920; 93005; 96374; 99285; C9113; G0328; P9051